=== PATIENT | female | born 1990 ===

== ENCOUNTER 2025-05-31 13:26 | Outpatient (CLI) | payer OTHER | END 2025-05-31 13:27 | disposition home or self-care (01) | LOC: SCSMRI 13:26 | PROVIDERS: ATTEND Nurse Practitioner Family | DX: S86.011A Strain of right Achilles tendon, initial encounter (principal); S86.00 Unspecified injury of Achilles tendon; Z71.9 Counseling, unspecified; S80.12XA Contusion of left lower leg, initial encounter; S93.492A Sprain of other ligament of left ankle, initial encounter; S93.412A Sprain of calcaneofibular ligament of left ankle, initial encounter; S93.432A Sprain of tibiofibular ligament of left ankle, initial encounter ==